=== PATIENT | female | born 1990 | race Caucasian/White ===

== ENCOUNTER → 2018-10-12 | Outpatient (CLI) | payer BC ==
--- NOTE | 2018-10-12 11:12 | MR ---
EXAMINATION TYPE: MR brain wo/w con DATE OF EXAM: 10/12/2018 COMPARISON: None HISTORY: syncope and collapse TECHNIQUE: Multiplanar, multisequence images of the brain and brainstem is performed without and with IV contras t, utilizing 6 mL intravenous Gadavist . FINDINGS: Diffusion weighted images demonstrate no evidence of a recent infarct or other diffusion ab normality. There is no extra-axial fluid collection or significant white matter signal abnormality. The ventricular system and cisternal spaces are normal in size and appearance. The brain volume is age appropriate. Midline structures demonstrate normal morphology. The craniocervical junction appears within normal limits. Post contrast images demonstrate no abnormal enhancement. The dural venous sinuses appear pa tent. The visualized sinuses are clear and the globes are intact. IMPRESSION: Normal brain MRI
== END | disposition home or self-care (01) ==
LOC: RADMRIMAIN 08:49
PROVIDERS: ATTEND Psychiatry & Neurology Neurology
DX: R55 Syncope and collapse (principal)
CPT/HCPCS: 70553; A9585

== ENCOUNTER → 2018-11-22 | Day surgery (SDC) | payer BC ==
[2018-11-15 10:28] VITALS: BMI 19.3
[~2018-11-22] MED LIST: IV FLUID CONTINUATION 1,000 ML IV ONE; SODIUM CHLORIDE 0.9% 1,000 ML IV SCH
[2018-11-22 12:00] VITALS: BP 144/80; PULSE 80; RESP 20
--- NOTE | 2018-11-22 14:58 | P.PCN ---
Preoperative Diagnosis: Procedure Tilt table test Twelve-lead ECG EKG and tilt table test data reviewed with Dr. Broderick Indication for the procedure: Syncope Twelve-lead ECG showed sinus mechanism with normal NV, narrow QRS, normal QT interval, normal ST segments, no delta or epsilon waves Baseline heart rate was 86 and blood pressure was 124/68 Patient was tilted upright at a 70 degree angle per protocol. Upon tilting upright, she became tachycardic in the 120-130s, no significant changes in blood pressure. After 34 minutes her pulse dropped abruptly to 62, her blood pressure dropped abruptly to 73/56 by clear site technician, and the patient passed out. After laying her flat her heart rate and blood pressure returned to normal Impression Normal twelve-lead ECG Postural orthostatic tachycardia syndrome followed by secondary orthostatic hypotension
--- NOTE | 2018-11-22 15:31 | P.PRLE ---
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 This test didn't reproduce her prodromal symptoms quite accurately. I have asked her to increase her fluid and salt intake and have suggested endurance training as well as isometric strengthening exercises of the lower extremities. I will send a follow-up note after about a month or so Thank you for entrusting me with the care of the patient Warm regards Sincerely Anam Broderick
== END ==
LOC: CATHEP 11:20
PROVIDERS: ATTEND Internal Medicine Clinical Cardiac Electrophysiology
DX: I95.1 Orthostatic hypotension (principal); R00.0 Tachycardia, unspecified
CPT/HCPCS: 84703; 93660